=== PATIENT | male | born 1990 | race Caucasian/White ===

== ENCOUNTER 2016-11-13 17:06 | Emergency (ER) | payer OTHER ==
[~2016-11-13] VITALS: Ht 175.3 cm; Wt 113.4 kg
--- NOTE | 2016-11-13 18:05 | NUR ---
PT IS IN ROOM #2A. DR WATERMAN EVALUATED THE PT.
[2016-11-13 18:30] LABS: BASOPHILS # (AUTO) 0.1 K/uL (0.0-8.0); BASOPHILS % (AUTO) 0.6 % (0.0-2.0); EOSINOPHILS # (AUTO) 0.2 K/uL (0.0-0.7); EOSINOPHILS % (AUTO) 1.3 % (0.0-7.0); HEMATOCRIT 46.9 % (40-50); HEMOGLOBIN 15.9 G/DL (14.0-18.0); LYMPHOCYTES # (AUTO) 2.3 K/UL (0.8-4.8); LYMPHOCYTES % (AUTO) 13.1 % (20.5-51.5); MEAN CORPUSCULAR HEMOGLOBIN 28.2 UUG (27.0-31.0); MEAN CORPUSCULAR HGB CONC 34 g/dL (32.0-37.0); MEAN CORPUSCULAR VOLUME 83.3 FL (82.0-92.0); MONOCYTES # (AUTO) 1.1 K/UL (0.1-1.30); MONOCYTES % (AUTO) 6.3 % (0.0-11.0); NEUTROPHILS # (AUTO) 13.7 K/UL (1.8-8.9); NEUTROPHILS % (AUTO) 78.7 % (38.5-71.5); PLATELET COUNT (AUTO) 233 K/UL (150-450); RED BLOOD CELL COUNT(AUTO) 5.63 MIL/UL (4.7-6.1); WHITE BLOOD COUNT (AUTO) 17.4 K/UL (4.0-11.2)
[2016-11-13 18:32] LABS: POTASSIUM 3.5 mmol/L (3.5-5.1)
[2016-11-13 18:37] LABS: BILIRUBIN,TOTAL 0.5 mg/dL (0.2-1.0); TOTAL PROTEIN, SERUM 7.7 g/dL (6.4-8.2)
[2016-11-13 18:59] LABS: BAND % (MANUAL) 7 % (0-10); LYMPHOCYTES % (MANUAL) 15 % (20-40); NEUTROPHILS % (MANUAL) 73 % (42-75)
[2016-11-13 19:00] LABS: MONOCYTES % (MANUAL) 5 % (2-10)
[2016-11-13 19:24] LABS: *BILIRUBIN,URIN NEGATIVE (NEGATIVE); *BLOOD, URINE NEGATIVE (NEGATIVE); *CLARITY,URINE CLEAR (CLEAR); *COLOR,URINE YELLOW (YELLOW); *KETONES,URINE NEGATIVE (NEGATIVE); *PROTEIN,URINE 1+ (NEGATIVE); *UROBILINOGEN,URINE 0.2 E.U./dl (NORMAL); LEUKOCYTE ESTERASE ,URINE NEGATIVE (NEGATIVE); NITRITE, URINE NEGATIVE (NEGATIVE); PH,URINE 7.5 (5.0-8.0); UGLUCOSE NEGATIVE (NEGATIVE)
--- NOTE | 2016-11-13 19:28 | NUR ---
Received report from SIERRA De Souza. Assumed care of pt at this time. Pt in radiology
[2016-11-13 19:38] LABS: MUCUS,URINE MODERATE /LPF (0-FEW); RBC,URINE 0-3 /HPF (0-3); WBC,URINE 0-3 /HPF (0-3)
--- NOTE | 2016-11-13 20:01 | NUR ---
Pt returned from radiology. Pt conts to c/o 08/26. Requesting more pain medication. Dr. Monroy notified, awaiting further orders. Pt resting in position of comfort for self.
--- NOTE | 2016-11-13 20:15 | NUR ---
Pt medicated for cont pain, will monitor for effects of medication. Pt repositioned for comfort
--- NOTE | 2016-11-13 21:45 | NUR ---
Pt ambulated to and from br with steady gait. Pt medicated for increased pain, will monitor for effects of medication
--- NOTE | 2016-11-13 22:30 | NUR ---
Wound done to abrasions to both arms and to R. knee. Triple antibiotic ointment applied, non-adherent drsg, gauze and gauze wrap. Pos CMS s/p application. Pt conts to c/o 7 pain, requesting medication prior to discharge.
--- NOTE | 2016-11-13 23:05 | NUR ---
Pt medicated for pain with positive improvement. Pt stable for discharge per Dr. Monroy. IV dc'd, catheter intact, drsg applied. No problems noted to site. Pt and friend given ACI. Both verbalized understanding of dc instructions. Pt wheeled out of ER via w/c with ride home.
[2016-11-14 00:09] VITALS: BP 122/78
== END 2016-11-13 23:05 | disposition home or self-care (01) ==
LOC: ER 17:07
DX: S80.211A Abrasion, right knee, initial encounter (principal); S30.811A Abrasion of abdominal wall, initial encounter; F41.9 Anxiety disorder, unspecified; V89.2XXA Person injured in unspecified motor-vehicle accident, traffic, initial encounter; Y93.55 Activity, bike riding; Y92.413 State road as the place of occurrence of the external cause; Y99.9 Unspecified external cause status
CPT/HCPCS: 36415; 70030-TC; 70450; 71010; 71260; 72125; 73020; 73060; 73070; 73090; 73100; 73120; 73562; 83690; 85025; 85610; 93005; A4217; A4663; C9113; J1170; J1885; J2060; J2270; J2405; J3490; J7030; J7050; Q9967